=== PATIENT | male | born 1945 | race Caucasian/White ===

== ENCOUNTER → 2020-10-31 | Outpatient (CLI) | payer MEDICARE ==
[~2020-10-31] MED LIST: AMLODIPINE BESYL5 MG PO; ANIMAL SHAPES1 EAC2 PO; ASPIRIN EC81 MG PO; ATORVASTATIN CA10 MG PO; BENICAR HCT 401 EAC1 PO; CO Q-10100 MG PO; FLOMAX 0.4 MG0.4 MG PO; LEVOTHYROXINE100 MCG PO; METROCREAM 0.7545 GM EXT; MINOCYCLINE HC100 M1 PO; TYLENOL EXTRA500 MG PO; VITAMIN D325 MCG PO
== END ==
LOC: KOH-I 09:56
DX: M47.26 Other spondylosis with radiculopathy, lumbar region (principal)
CPT/HCPCS: 72110

== ENCOUNTER → 2020-11-02 | Day surgery (SDC) | payer MEDICARE | END | disposition home or self-care (01) | LOC: OR 06:11 | PROVIDERS: Surgery | PROC: 0DJD8ZZ Inspection of Lower Intestinal Tract, Via Natural or Artificial Opening Endoscopic (ICD-10-PCS; principal; 2020-11-02 07:30) | DX: Z12.11 Encounter for screening for malignant neoplasm of colon (principal); I25.10 Atherosclerotic heart disease of native coronary artery without angina pectoris; I10 Essential (primary) hypertension; I49.3 Ventricular premature depolarization; E78.5 Hyperlipidemia, unspecified; M19.90 Unspecified osteoarthritis, unspecified site; G89.29 Other chronic pain; M54.9 Dorsalgia, unspecified; M54.12 Radiculopathy, cervical region; N40.0 Benign prostatic hyperplasia without lower urinary tract symptoms; E03.9 Hypothyroidism, unspecified; D51.0 Vitamin B12 deficiency anemia due to intrinsic factor deficiency; G62.9 Polyneuropathy, unspecified; R73.03 Prediabetes; Z20.822 Contact with and (suspected) exposure to COVID-19; Z79.82 Long term (current) use of aspirin; Z87.19 Personal history of other diseases of the digestive system; Z79.1 Long term (current) use of non-steroidal anti-inflammatories (NSAID); Z79.899 Other long term (current) drug therapy; Z95.5 Presence of coronary angioplasty implant and graft | CPT/HCPCS: J2001; J2704; J7120 ==

== ENCOUNTER → 2021-02-22 | Outpatient (CLI) | payer MEDICARE | LOC: KOH-I 08:00 | DX: M51.16 Intervertebral disc disorders with radiculopathy, lumbar region (principal); M43.16 Spondylolisthesis, lumbar region | CPT/HCPCS: 72148 ==